=== PATIENT | male | born 1995 | race American Indian/Alaskan Native ===

== ENCOUNTER 2025-10-23 15:20 | Outpatient (AMB) | payer BC, SELFPAY ==
--- NOTE | 2025-10-23 15:40 | A.OFFVIS_ITS ---
Intake Visit Reasons: New Onset Seizures HPI Comments Details: The patient is a 30 year old male presenting with new onset seizures. He reports the seizures started approximately two to three months ago, in mid-June, with no prior history of seizures. He states he was previously in perfect health. The patient has experienced two generalized seizures. The first episode occurred after work when he stood up from the toilet; he experienced arm stiffening and then lost consciousness, with his girlfriend finding him on the bed asleep hours later. The second event was similar, occurring in the morning after standing up from the toilet, where he again felt arm stiffness and then passed out; his girlfriend found him on the bathroom floor having a seizure. He denies urinary incontinence during these episodes. In addition to the generalized seizures, the patient reports daily focal seizures, sometimes twice a day, which manifest as stiffening in his arm. These episodes last for a couple of minutes and are followed by significant fatigue, causing him to sleep. Following the initial event, he went to the emergency room at [facility] in [place] where a CT scan was performed and was advised to see a specialist for an MRI. He later had an EEG at the same facility, which he was told was normal. The patient does not have these records and has not yet had an MRI. He is currently taking Keppra 500 mg twice daily, but feels it only manages the seizures without providing full control. 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 There is no family history of seizures. Review of Systems Narrative - Neurological: Reports two episodes of generalized seizures preceded by arm stiffening and loss of consciousness. - Reports daily focal seizures of the arm. - Reports postictal fatigue. - Denies amnesia for events preceding the seizure. - Constitutional: Reports significant fatigue following focal seizures, requiring sleep. - Integumentary: Denies significant birthmarks. - Genitourinary: Denies urinary incontinence. Physical Exam Neuro Other: Mental Status: Alert and oriented to person, place, and time. Normal attention. Normal spontaneous speech, fluency, and comprehension. No obvious issues with mood and memory. Affect is appropriate. Cranial Nerves: CN II: Visual justin full to confrontation, visual acuity intact. CN III, IV, : Pupils equal, round, reactive to light and accommodation. Extraocular movements are normal. CN V: Facial sensation is normal. CN VII: Facial movements symmetrical. CN VIII: Hearing intact to bedside conversation is normal. CN IX, X: Palate elevates symmetrically. CN XI: Shoulder shrug and head turn symmetrical. CN XII: Tongue midline without atrophy or fasciculations. Motor: Bulk and tone normal in all extremities. No significant muscle weakness in arms and legs. No drift. Reflexes: Deep tendon reflexes 2+ and symmetric. Plantar response down-going bilaterally. Coordination: Yqpkea-xf-pyin and [id number]-km-ulds testing normal. No dysmetria. Gait and Station: No obvious gait abnormality. No ataxia or instability. Sensory: Intact to light touch, pinprick, and vibration. Romberg is negative. Extrapyramidal: Full facial expressions and blinking. No rigidity. Movements are appropriate with no tremor or abnormality. Speech: Normal; no dysarthria or tremor. Assessment & Plan Assessment & Plan (1) Seizure disorder: Code(s): G40.909 - Epilepsy, unspecified, not intractable, without status epilepticus Category: Medical Plan Impression: Possible secondarily generalized seizure disorder pending EEG confirmation Rec: a: Levetriacetam 1000mg bid b: MRI brain WWO c: EEG report from [facility] d: No driving I have discussed the diagnostic and management plan with the patient. I explained that we need to order an MRI of his brain to investigate the cause of his seizures and that it will be done without contrast. We will increase his Keppra dose to 1000 mg twice daily to better control his seizure activity. As we did not find any report of EEG in [facility] system, an EEG was ordered. I reinforced the importance of not driving while he is having seizures. Orders: Orders MR head/brain wo/w con Today G40.909 - Epilepsy, unspecified, not intractable, without status epilepticus EEG Routine Today G40.909 - Epilepsy, unspecified, not intractable, without status epilepticus Medications: New levetiracetam 1,000 mg PO BID 180 tabs 0RF Coding Level of Care Code New Pt Level 4 (26658) Diagnoses Seizure disorder G40.909
== END 2025-10-23 16:06 | disposition home or self-care (01) ==
LOC: HO.HSM 15:21
PROVIDERS: PCP Internal Medicine; Visit Provider Psychiatry & Neurology Neurology
DX: G40.909 Epilepsy, unspecified, not intractable, without status epilepticus (principal)
CPT/HCPCS: 99204